=== PATIENT | male | born 1990 | race Caucasian/White ===

== ENCOUNTER 2017-08-31 23:40 | Emergency (ER) | payer MEDICAID ==
[~2017-08-31] VITALS: Ht 177.8 cm; Wt 90.3 kg
[2017-08-31 23:50] VITALS: BP 140/89; Ht 177.8 cm; Wt 90.3 kg
== END 2017-09-01 00:36 | disposition left against medical advice (07) ==
LOC: ED 23:40
DX: Z53.21 Procedure and treatment not carried out due to patient leaving prior to being seen by health care provider (principal)